=== PATIENT | male | born 1935 | race Two or more races ===

== ENCOUNTER 2017-04-04 12:48 | Emergency (ER) | payer MEDICARE, OTHER ==
--- NOTE | ~2017-04-04 | CR72 ---
[facility] A Service of [facility] RADIOLOGY TEXT RESULTS PATIENT: MARQUEZ CADENA LOCATION: [facility] : 35 UNIT #: [id number] AGE: [address]: Mahesh Bryan MD SEX: M ORDER DR: [id number] [facility] [place], [place] [address] [id number] MR#: [id number] Acc #: [id number] NAME: MARQUEZ CADENA : 1935 SEX: M STUDY DATE/TIME: 04/04/2017 15:18 UNIT: [facility] ROOM: STUDY DESCRIPTION: CR Chest Single View Portable Attending Physician: Mahesh Bryan M.D. Ordering Physician: Maehsh Bryan M.D. Primary Care Physician: Santos Craven M.D. MEDICAL IMAGING REPORT This report is preliminary unless electronic signature is present EXAM Portable chest INDICATIONS Cough, shortness of breath and runny nose for one week. COMPARISON Yesterday. FINDINGS There is no acute infiltrate. Heart size stable. Atherosclerotic calcification of the aorta. Visualized osseous structures are unremarkable. IMPRESSION No acute findings. Dictated by... Javier Dixon M.D. THIS IS AN ELECTRONICALLY VERIFIED REPORT Javier Dixon M.D. at 04/05/2017 7:35 AM ROCHELLE/larry TD: 04/04/2017 16:12 JOB #: [id number] MEDICAL IMAGING REPORT Page 1 of 1 COPY
--- NOTE | ~2017-04-04 | EKG ---
PATIENT: MARQUEZ CADENA UNIT #: [id number] Ventricular Rate: 66 BPM Atrial Rate: 66 BPM P-R Interval: 190 ms QRS Duration: 114 ms Q-T Interval: 402 ms QTC Calculation(Bezet): 421 ms P [place]: 82 degrees Calculated R [place]: -63 degrees Calculated T [place]: 82 degrees Diagnosis Line: Normal sinus rhythm Diagnosis Line: Left anterior fascicular block Diagnosis Line: Left ventricular hypertrophy with repolarization Diagnosis Line: abnormality Diagnosis Line: Abnormal ECG Diagnosis Line: Diagnosis Line: Confirmed by AVTAR DE LA GARZA MD ([id number]) on 04/04/2017 Diagnosis Line: 5:28:23 PM INTERPRETING MD: HOLLI PETER
[~2017-04-04 12:48] MED LIST: ADVAIR 2501 DISK W/D PO; ALBUTEROL17 G2 IH; LEVAQUIN PO; PREDNISONE PO; SPIRIVA18 MCG INH; SYMBICORT INH
[2017-04-04 13:39] LABS: BASOPHIL# 0.1 X10e3 (0-0.3); BASOPHIL% 0.7 % (0-2.5); EOSINOPHIL# 0.6 X10e3 (0-0.7); EOSINOPHIL% 8.6 % (0.0-7.0); HEMOGLOBIN 13.3 gm/dL (13.0-16.0); LYMPHOCYTE# 2.2 X10e3 (1.0-3.5); LYMPHOCYTE% 30.1 % (17.0-45.0); MEAN CELL VOLUME 92.9 FL (83-96); MEAN CORPUSCULAR HEMOGLOBIN 30.2 PG (28-34); MEAN CORPUSCULAR HGB CONC 32.5 g/dL (30-36); MEAN PLATELET VOLUME 8.5 FL (6.5-11.5); MONOCYTE# 0.6 X10e3 (0-1.0); MONOCYTE% 8.1 % (3.0-12.0); NEUTROPHIL# 3.9 X10e3 (1.5-7.1); NEUTROPHIL% 52.5 % (40-75); PLATELET COUNT 189 X10e3 (140-420); RED BLOOD COUNT 4.41 X10e (3.90-5.60); RED CELL DISTRIBUTION WIDTH 14.4 % (11.0-15.5); WHITE BLOOD COUNT 7.5 X10e3 (4.0-10.5)
[2017-04-04 13:40] LABS: DIFF IND NO
[2017-04-04 13:54] LABS: BILIRUBIN, DIRECT 0.1 mg/dL (0.0-0.2); BILIRUBIN,INDIRECT 0.6 mg/dL (0.0-0.9); BILIRUBIN,TOTAL 0.7 mg/dL (0.2-2.0); BUN/CREATININE RATIO 25.71; CREATININE SERUM 0.7 mg/dL (0.6-1.4); GLOM FILT RATE Estimated 88.5 mL/min (>60); POTASSIUM 4.4 mmol/L (3.5-5.1); PROTEIN TOTAL SERUM 6.9 g/dL (6.0-8.3)
[2017-04-04 14:56] LABS: POC - CKMB <1.0 ng/mL (0.0-7.9); POC - TROPONIN <0.05 ng/mL (<=0.05)
[2017-04-04 16:01] LABS: POC - CKMB <1.0 ng/mL (0.0-7.9); POC - TROPONIN <0.05 ng/mL (<=0.05)
== END 2017-04-04 16:40 | disposition home or self-care (01) ==
LOC: CED 12:48
PROVIDERS: Emergency Medicine
DX: J44.1 Chronic obstructive pulmonary disease with (acute) exacerbation (principal); J06.9 Acute upper respiratory infection, unspecified; J45.909 Unspecified asthma, uncomplicated
CPT/HCPCS: 36415; 71010; 80048; 80076; 82553; 84484; 85025; 93005; 96374; 96375; 99283; J2930